=== PATIENT | female | born 1980 | race American Indian/Alaskan Native ===

== ENCOUNTER 2021-12-05 09:22 | Emergency (ER) | payer SELFPAY ==
--- NOTE | 2021-12-05 10:22 | XRay Report ---
RIGHT KNEE 3 VIEW(S) INDICATION / CLINICAL INFORMATION: injury, pain COMPARISON: None available. FINDINGS: BONES / JOINT(S): No acute fracture or subluxation. No significant arthritis. Nonspecific small knee joint effusion. SOFT TISSUES: No significant abnormality. ADDITIONAL FINDINGS: None. IMPRESSION: Nonspecific small right knee joint effusion. No acute osseous abnormality. Signer Name: Peewee Michaud MD Signed: 12/05/2021 10:18 AM Workstation Name: [email or web address]
--- NOTE | 2021-12-05 11:17 | Emergency Department Report ---
ED Lower Extremity HPI - General Chief Complaint: Extremity Injury, Lower Stated Complaint: RIGHT KNEE PAIN Time Seen by Provider: 12/05/21 09:53 Source: patient Mode of arrival: Wheelchair Limitations: Physical Limitation - Related Data Previous Rx's Medication Instructions Recorded Last Taken Type Naproxen [Naprosyn TAB] 500 mg PO BID 7 Days #14 tablet 12/05/21 Unknown Rx Allergies Allergy/AdvReac Type Severity Reaction Status Date / Time No Known Allergies Allergy Verified 12/05/21 09:44 ED Review of Systems ROS: Stated complaint: RIGHT KNEE PAIN Other details as noted in HPI ED Past Medical Hx - Medications Home Medications: Home Medications Medication Instructions Recorded Confirmed Last Taken Type Naproxen [Naprosyn TAB] 500 mg PO BID 7 Days #14 tablet 12/05/21 Unknown Rx ED Physical Exam - General Limitations: Physical Limitation ED Course Vital Signs 12/05/21 09:41 Temperature 97.7 F Pulse Rate 75 Blood Pressure 114/84 [Right] O2 Sat by Pulse 100 Oximetry Critical care attestation.: If time is entered above; I have spent that time in minutes in the direct care of this critically ill patient, excluding procedure time. ED Disposition Clinical Impression: Knee pain Qualifiers: Chronicity: acute Laterality: right Qualified Code(s): M25.561 - Pain in right knee Fall Qualifiers: Encounter type: initial encounter Qualified Code(s): W19.XXXA - Unspecified fall, initial encounter Disposition: 01 HOME / SELF CARE / HOMELESS Is pt being admited?: No Does the pt Need Aspirin: No Condition: Stable Instructions: How to Use Cold Therapy, [id number], Musculoskeletal Pain, Acute Knee Pain, Adult, Zbnb-ke-Exam Additional Instructions: Take medication as prescribed. Follow-up with your primary care provider or orthopedics if no improvement or worsening symptoms. Return to the emergency department as needed. Prescriptions: Naproxen [Naprosyn TAB] 500 mg PO BID 7 Days #14 tablet Referrals: SERGIO BELCHER MD [Staff Physician] - 3-5 Days CRISTAL GARZA MD [Staff Physician] - 3-5 Days Forms: Work/School Release Form(ED) Time of Disposition: 11:16
[2021-12-05 12:23] VITALS: BP 106/74
== END 2021-12-05 12:22 | disposition home or self-care (01) ==
LOC: ED 09:22
DX: M25.561 Pain in right knee (principal); Z79.899 Other long term (current) drug therapy; W18.39XA Other fall on same level, initial encounter; Y93.89 Activity, other specified; Y92.89 Other specified places as the place of occurrence of the external cause; Y99.8 Other external cause status
CPT/HCPCS: 99283